=== PATIENT | female | born 1985 | race Caucasian/White ===

== ENCOUNTER 2017-10-11 14:13 | Emergency (ER) | payer BC ==
[~2017-10-11] VITALS: Ht 165.1 cm; Wt 67.3 kg
[2017-10-11 14:41] LABS: BASOPHIL (%) 0.2 % (0-1); EOSINOPHIL (%) 0 % (0-5); HEMATOCRIT 39.7 % (36.0-46.0); HEMOGLOBIN 14.1 G/DL (11.9-15.5); IMMATURE GRANULOCYTE (%) 0.4 % (0.0-0.7); LYMPHOCYTE (%) 9.7 % (15-42); MCH 30.8 PG (29.0-34.0); MCHC 35.5 G/DL (30.0-36.0); MCV 86.7 FL (83-99); MONOCYTE (%) 4.5 % (3-12); MONOCYTE COUNT 0.5 K/uL (0-0.8); NEUTROPHIL (%) 85.2 % (45-76); NEUTROPHIL COUNT 8.7 K/uL (1.8-6.4); PLATELET COUNT 273 K/uL (156-360); RBC DIS.WIDTH-CV 11.5 % (11.8-14.6); RBC DIS.WIDTH-SD 36.3 % (39-53); RED BLOOD COUNT 4.58 M/uL (3.80-5.20); WHITE BLOOD COUNT 10.2 K/uL (4.1-10.2)
[2017-10-11 14:49] LABS: CHLORIDE 107 mEq/L (99-109); POTASSIUM 3.8 mEq/L (3.7-5.4); SODIUM 142 mEq/L (136-147)
[2017-10-11 14:50] LABS: GLUCOSE 105 mg/dL (70-99)
[2017-10-11 14:55] LABS: CREATININE 0.8 mg/dL (0.6-1.3); UREA NITROGEN (BUN) 14 mg/dL (9-23)
[2017-10-11 14:57] LABS: GFR ESTIMATE (CALCULATED) > 59 mL/min/
[2017-10-11 15:03] LABS: QUANTITATIVE HCG < 4.0 MIU/ML
[2017-10-11] MEDS ORDERED: MOTRIN600 MG PO (16:18)
[2017-10-11] MEDS ORDERED: ZOFRAN ODT4 MG PO (16:18)
[2017-10-11] MEDS ORDERED: FLEXERIL10 MG PO (16:21)
[2017-10-11 16:30] VITALS: BP 128/78
== END 2017-10-11 16:33 | disposition home or self-care (01) ==
LOC: EME 14:13
PROVIDERS: Emergency Medicine
DX: S16.1XXA Strain of muscle, fascia and tendon at neck level, initial encounter (principal); S29.012A Strain of muscle and tendon of back wall of thorax, initial encounter; K08.89 Other specified disorders of teeth and supporting structures; R51 Headache; V00.322A Snow-skier colliding with stationary object, initial encounter; Y93.23 Activity, snow (alpine) (downhill) skiing, snowboarding, sledding, tobogganing and snow tubing
CPT/HCPCS: 70450; 70486; 72125; 80048; 84702; 85025; 99281; 99285; J2405; J7030